=== PATIENT | female | born 1985 | race Caucasian/White ===

== ENCOUNTER 2018-06-28 18:09 | Emergency (ER) | payer OTHER, MEDICAID, SELFPAY ==
[2018-06-28 18:14] VITALS: BP 122/78; PULSE 69; RESP 14; TEMP 37; O2SAT 100; BMI 28.8
--- NOTE | 2018-06-28 18:20 | ED.ALLEREA ---
HPI - Allergic Reaction General Chief complaint: Allergic Reaction Stated complaint: POSSIBLE ALLERGIC REACTION Time Seen by Provider: 06/28/18 18:17 Source: patient and family Mode of arrival: ambulatory Limitations: no limitations History of Present Illness HPI narrative: 32-year-old female, otherwise healthy, nonsmoker presents with family in the chief complaint of generally feeling unwell. Few days ago she had seen her dentist with a chief complaint of a right upper dental pain and was subsequently placed on antibiotics and scheduled for a root canal. Soon after taking the penicillin VK she started feeling a bit nauseated with decreased appetite and was switched to clindamycin. At no point were there any true allergic type symptoms including rash or swelling of tongue, lip sore throat. Well on clindamycin she has more GI upset but not necessarily vomiting or diarrhea. She feels unwell but states the dental infection appears to be getting better. She denies any facial pain or swelling. She has no trouble breathing and denies any rash Onset (ago): day(s) Exposure: unknown Severity: mild Treatment prior to arrival: none Previous Allergic Reaction History: none Related Data Previous Rx's Medication Instructions Recorded ibuprofen 800 mg PO Q8HP PRN #90 tab 07/21/17 amoxicillin-pot clavulanate 875 mg PO BID #14 tab 01/07/18 [Augmentin] Allergies Allergy/AdvReac Type Severity Reaction Status Date / Time No Known Allergies Allergy Uncoded 06/28/18 18:11 Review of Systems Review of Systems All systems reviewed & are unremarkable except as noted in HPI and below Constitutional Denies chills, Denies fever(s), Denies lethargy and Reports weakness Eyes Denies change in vision, Denies eye discharge, Denies irritation and Denies loss of vision ENT Ears, Nose, Mouth, and Throat: Denies change in voice, Reports dental pain, Denies neck pain and Denies sore throat Cardiovascular Denies chest pain, Denies irregular heart rhythm, Denies lightheadedness, Denies palpitations, Denies dyspnea, Denies dyspnea on exertion and Denies orthopnea Respiratory Denies cough, Denies dyspnea, Denies dyspnea on exertion and Denies wheezing Gastrointestinal Gastrointestinal: Denies abdominal pain, Denies change in bowel habits, Denies diarrhea, Reports nausea and Denies vomiting Genitourinary Denies hematuria, Denies flank pain, Denies urinary incontinence and Denies urinary urgency Musculoskeletal Denies neck pain Integumentary/Breasts Denies pruritus, Denies erythema, Denies rash and Denies wounds Neurologic Denies confusion, Denies loss of vision and Reports weakness Psychiatric Denies anxiety, Denies confusion, Denies depression, Denies homicidal ideation and Denies suicidal ideation Endocrine Denies palpitations Hematologic/Lymphatic Denies easy bruising Allergic/Immunologic Denies wheezing PFSH Social History Smoking Status: Never smoker Exam Narrative Exam Narrative: GEN: AOx3 and in mild distress EYES: Pupils are equal, round, and reactive to light and accommodation. Extraoccular muscles are intact bilaterally. There is no subconjunctival hemorrhage or exudate. DENTAL: Poor dentition throughout, right upper premolar with some gingival swelling but no fluctuance suggesting abscess. No mucosal sloughing or intraoral involvement. No tongue or lip swelling. CHEST: Lungs are clear to auscultation bilaterally and free of wheezes, rales, or rhonchi. Heart rate is regular rhythm, there are no murmurs, clicks, rubs, or gallops. There is no chest wall tenderness. ABD: Abdomen is soft and nontender. There is no guarding or rebound. Bowel sounds are normal in all 4 quadrants. There is no mass or organomegaly. EXT: Full painless ROM of all extremities with no loss of sensation or strength. SKIN: Warm, pink, and dry. No erythema or rash Initial Vital Signs Initial Vital Signs: Vital Signs Temperature 98.6 F 06/28/18 18:14 Pulse Rate 69 06/28/18 18:14 Respiratory Rate 14 06/28/18 18:14 Blood Pressure 122/78 06/28/18 18:14 Pulse Oximetry 100 06/28/18 18:14 Course Orders Ordered: ED Orders 06/28/18 19:06 Complete Blood Count AUTO DIFF Stat Procalcitonin Stat 06/28/18 19:25 Lactate (Lactic Acid) Stat Discontinued Medications Sodium Chloride (Normal Saline 0.9%) 1,000 mls @ 1,000 mls/hr IV BOLUS ONE Stop: 06/28/18 19:36 Last Infusion: 06/28/18 20:05 Dose: 0 mls/hr Admin: 06/28/18 18:56 Dose: 1,000 mls/hr Ketorolac Tromethamine (Toradol) 15 mg IV NOW ONE Stop: 06/28/18 18:38 Last Admin: 06/28/18 18:55 Dose: 15 mg Ondansetron HCl (Zofran) 4 mg IV Q4HR PRN PRN Reason: Nausea And Vomiting Last Admin: 06/28/18 18:56 Dose: 4 mg Reevaluation(s) Reevaluation #1: Patient feels tremendous improvement after above-stated therapies. We had lengthy discussion regarding her symptoms and it seems very likely that her appetite has been suppressed by the dental infection and and antibiotics and she has had less oral intake and has become mildly dehydrated. We discussed the use of probiotics and staying well hydrated. She will call her dentist tomorrow Vital Signs - 8 hr 06/28/18 19:54 06/28/18 20:58 Temperature 98.6 F Pulse Rate 69 60 Respiratory Rate 14 16 Blood Pressure 122/78 Blood Pressure [Right Arm] 112/70 Pulse Oximetry 100 100 MDM - Allergic Reaction Lab Data Result diagrams: 06/28/18 19:06 Lab Results 06/28/18 06/28/18 06/28/18 Range/Units 19:06 19:06 19:25 WBC 13.5 H (4.5-11.0) X10^3/uL RBC 4.40 (4.0-5.2) X10^6/uL Hgb 13.3 (12.0-16.0) g/dL Hct 39.4 (36-46) % MCV 89.5 (80-100) fL MCH 30.1 (26-34) PG MCHC 33.6 (30-36) % RDW 12.5 (11.6-14.8) % Plt Count 259 (150-400) X10^3/uL Neut % (Auto) 81.4 H (50-75) % Lymph % (Auto) 12.9 L (25-40) % [place] % (Auto) 4.2 (3-14) % Eos % (Auto) 0.8 L (2-4) % Baso % (Auto) 0.7 (0-2) % Neut # (Auto) 87999 H (5734-7129) /uL Lactate 0.7 (0.7-2.1) mmol/L Procalcitonin < 0.05 (<0.5) ng/mL Discharge Plan Departure Patient Disposition: Home Clinical Impression: Acute dehydration, Dental abscess Discharge Date/Time: 06/28/18 21:05 Interventions: ED Discharge Assessment Last Done: 06/28/18 21:04 Instructions: Tooth Abscess Activity Restrictions/Additional Instructions: 1. Drink plenty of fluids with frequent small sips. 2. For the next 24 hours a clear liquid diet is advised. After that please employ a brat diet which would include bananas, rice, apples, toast. 3. Please take medications as directed.Consider the addition of probiotics 4. Please follow-up with your doctor in the next 1-2 days. Call the office for an appointment. 5. Please return to the emergency Department for any worsening or persistent symptoms, such as increasing pain or fever. Prescriptions: No Action ibuprofen 800 MG tablet 800 mg PO Q8HP PRNQty: 90 RF: 0 amoxicillin-pot clavulanate [Augmentin] 875 MG/125 MG tablet 875 mg PO BID Qty: 14 RF: 0
[2018-06-28] MEDS: KETOROLAC 60 MG/2 ML VIAL 15 MG IV (18:55)
[2018-06-28] MEDS: SODIUM CHLORIDE 0.9% 1,000 ML 1000 ML IV (18:56)
[2018-06-28] MEDS: ONDANSETRON 4 MG/2 ML INJ IV (18:56)
[2018-06-28 19:27] LABS: Add Manual Diff / Slide Review NO; Basophils Percent Auto 0.7 % (0-2); Eosinophils Percent Auto 0.8 % (2-4); Hematocrit 39.4 % (36-46); Hemoglobin 13.3 g/dL (12.0-16.0); Lymphocytes Percent Auto 12.9 % (25-40); Mean Corpuscular HGB Conc 33.6 % (30-36); Mean Corpuscular Hemoglobin 30.1 PG (26-34); Mean Corpuscular Volume 89.5 fL (80-100); Monocytes Percent Auto 4.2 % (3-14); Neutrophils Absolute Auto 11000 /uL (3000-5900); Neutrophils Percent Auto 81.4 % (50-75); Platelet Count 259 X10^3/uL (150-400); Red Cell Distribution Width 12.5 % (11.6-14.8); White Blood Cell Count 13.5 X10^3/uL (4.5-11.0)
[2018-06-28 19:40] LABS: Lactate (Lactic Acid) 0.7 mmol/L (0.7-2.1)
[2018-06-28 19:54] VITALS: BP 122/78; PULSE 69; RESP 14; TEMP 37; O2SAT 100; BMI 28.8
[2018-06-28 20:03] LABS: Procalcitonin < 0.05 ng/mL (<0.5)
[2018-06-28 20:58] VITALS: BP 112/70; PULSE 60; RESP 16; O2SAT 100
== END 2018-06-28 21:05 | disposition home or self-care (01) ==
PROVIDERS: Emergency Provider Emergency Medicine; PCP Family Medicine
DX: E86.0 Dehydration (principal); K04.7 Periapical abscess without sinus
CPT/HCPCS: 36415; 36591; 83605; 84145; 85025; 96361; 96374; 96375; 99283; 99284; J1885; J2405

== ENCOUNTER 2018-12-07 10:14 | Emergency (ER) | payer OTHER, MEDICAID, SELFPAY ==
[2018-12-07 11:04] VITALS: BP 109/70; PULSE 67; RESP 13; TEMP 36.9; O2SAT 100
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
[2018-12-07] MEDS: IBUPROFEN 400 MG TABLET 800 MG PO (12:11)
[2018-12-07 12:25] VITALS: BP 112/78; PULSE 70; RESP 14; O2SAT 98
== END 2018-12-07 12:20 | disposition home or self-care (01) ==
PROVIDERS: Emergency Provider Emergency Medicine; PCP Family Medicine
DX: S16.1XXA Strain of muscle, fascia and tendon at neck level, initial encounter (principal); V89.2XXA Person injured in unspecified motor-vehicle accident, traffic, initial encounter
CPT/HCPCS: 99282

== ENCOUNTER → 2019-03-23 14:22 | Outpatient (CLI) | payer OTHER, MEDICAID, SELFPAY ==
--- NOTE | 2019-03-23 14:25 | DI.US.S_ITS ---
LIMITED ULTRASOUND OF RIGHT BREAST: 03/23/2019 CLINICAL: Palpable right breast lump by physician. Comparison is made to exam dated: 03/23/2019 [facility]. Color flow and real-time ultrasound of the right breast 6 o'clock region were performed. Treadwell scale images of the real-time examination were reviewed. No abnormalities were seen sonographically in the right breast. IMPRESSION: NEGATIVE There is no sonographic evidence of malignancy. Return to annual mammogram screening schedule is recommended. Findings and recommendations were conveyed to the patient at time of exam. This exam was interpreted at Station ID: [id number]. Electronically Signed By: Fransisca snow/:03/23/2019 17:22:13 letter sent: Normal Exam Ultrasound BI-RADS: 1 Negative
--- NOTE | 2019-03-23 14:25 | DI.MG.S_ITS ---
BILATERAL DIGITAL DIAGNOSTIC MAMMOGRAM 3D/2D: 03/23/2019 CLINICAL: Baseline exam. Right breast pain. Bilateral lumps noted by the MD. No prior exams were available for comparison. There are scattered fibroglandular elements in both breasts. No significant masses, calcifications, or other findings are seen in either breast. IMPRESSION: INCOMPLETE: NEEDS ADDITIONAL IMAGING EVALUATION There is no abnormality seen in either breast to correspond with the palpable abnormality and pain, however, ultrasound for complete evaluation is recommended. This was performed immediately following this exam. This exam was interpreted at Station ID: [id number]. NOTE: For mammograms, a report in lay terms will be sent to the patient. Approximately 15% of breast malignancies will not be visualized mammographically. In the management of a palpable breast mass, a negative mammogram must not discourage biopsy of a clinically suspicious lesion. Electronically Signed By: Fransisca snow/:03/23/2019 17:18:50 ACR BI-RADS Category 0: Incomplete [id number]
--- NOTE | 2019-03-23 16:01 | DI.US.S_ITS ---
LIMITED ULTRASOUND OF LEFT BREAST: 03/23/2019 CLINICAL: Palpable left breast lump by physician. Comparison is made to exam dated: 03/23/2019 [facility]. Color flow and real-time ultrasound of the left breast 6 o'clock region were performed. Treadwell scale images of the real-time examination were reviewed. No abnormalities were seen sonographically in the left breast. IMPRESSION: NEGATIVE There is no sonographic evidence of malignancy. Return to annual mammogram screening schedule is recommended. Findings and recommendations were conveyed to the patient at time of exam. This exam was interpreted at Station ID: [id number]. Electronically Signed By: Fransisca snow/:03/23/2019 17:23:32 letter sent: Normal Exam Ultrasound BI-RADS: 1 Negative
== END ==
PROVIDERS: PCP Family Medicine; Visit Provider Family Medicine
DX: R92.8 Other abnormal and inconclusive findings on diagnostic imaging of breast (principal); N64.4 Mastodynia; N63.10 Unspecified lump in the right breast, unspecified quadrant; N63.20 Unspecified lump in the left breast, unspecified quadrant
CPT/HCPCS: 76642; 77066; G0279

== ENCOUNTER 2019-04-30 17:45 | Emergency (ER) | payer OTHER, MEDICAID, SELFPAY ==
[2019-04-30 17:59] VITALS: BP 105/75; PULSE 63; RESP 18; TEMP 36.8; O2SAT 100; BMI 28.1
--- NOTE | 2019-04-30 18:09 | ED_ITS ---
HPI - Neck Pain/Injury General Chief Complaint: Neck Pain/Injury Stated Complaint: ?bone/blood in throat x4 day Time Seen by Provider: 04/30/19 18:07 Source: patient Mode of arrival: ambulatory Limitations: no limitations History of Present Illness HPI Narrative: 33-year-old female nonsmoker and otherwise healthy presents with a chief complaint itching, scratching and occasional hemoptysis in her throat since eating a salmon dinner 4 days ago. She is fairly certain she remembers the moment it happened and she briefly choked on a bone and thinks she may have caught up. She has had a foreign body sensation in her throat ever since though she can eat and drink without significant difficulty. She had cough with bloody sputum today. She denies fever chills nor shortness of breath. Onset (ago): day(s) Place: home Quality: stabbing Duration: constant Relieving factors: none Exacerbating factors: none Treatments prior to arrival: none Related Data Previous Rx's Medication Instructions Recorded ibuprofen 800 mg PO Q8HP PRN #90 tab 07/21/17 Allergies Allergy/AdvReac Type Severity Reaction Status Date / Time amoxicillin AdvReac Intermediate Nausea Verified 04/30/19 17:59 Review of Systems Constitutional Denies chills, Denies fever(s), Denies lethargy and Denies weakness Eyes Denies change in vision, Denies eye discharge, Denies irritation and Denies loss of vision ENT Ears, Nose, Mouth, and Throat: Denies change in voice, Denies neck pain and Reports sore throat Cardiovascular Denies chest pain, Denies irregular heart rhythm, Denies lightheadedness, Denies palpitations, Denies dyspnea, Denies dyspnea on exertion and Denies orthopnea Respiratory Reports cough, Denies dyspnea, Denies dyspnea on exertion and Denies wheezing Gastrointestinal Gastrointestinal: Denies abdominal pain, Denies change in bowel habits, Denies diarrhea, Denies nausea and Denies vomiting Genitourinary Denies hematuria, Denies flank pain, Denies urinary incontinence and Denies urinary urgency Musculoskeletal Denies neck pain Integumentary/Breasts Denies pruritus, Denies erythema, Denies rash and Denies wounds Neurologic Denies confusion, Denies loss of vision and Denies weakness Psychiatric Denies anxiety, Denies confusion, Denies depression, Denies homicidal ideation and Denies suicidal ideation Endocrine Denies palpitations Hematologic/Lymphatic Denies easy bruising Allergic/Immunologic Denies wheezing PFSH Social History Smoking Status: Never smoker Social History Smoking Status: Never smoker Exam Narrative Exam Narrative: GENERAL: This is a well-nourished, well-developed patient, in mild distress. HEAD: Atraumatic. Normocephalic. No temporal or scalp tenderness. EYES: Pupils equal round and reactive. Extraocular motions intact. No scleral icterus. No injection or drainage. ENT: Nose without bleeding, purulent drainage or septal hematoma. Throat without erythema, tonsillar hypertrophy or exudate. Uvula midline. Airway patent. NECK: Trachea midline. No JVD or lymphadenopathy. Supple, nontender, no meningeal signs. CARDIOVASCULAR: Regular rate and rhythm without murmurs, gallops, or rubs. RESPIRATORY: Clear to auscultation. Breath sounds equal bilaterally. No wheezes, rales, or rhonchi. GASTROINTESTINAL: Abdomen soft, non-tender, nondistended. No hepato- splenomegaly, or palpable masses. No guarding. EXTREMITIES: No clubbing, cyanosis, or edema. No joint tenderness, effusion, or edema noted. BACK: Nontender without deformity or crepitance. No flank tenderness. NEURO: AOx3. SKIN: No rash or erythema. Initial Vital Signs Initial Vital Signs: Vital Signs Temperature 98.3 F 04/30/19 17:59 Pulse Rate 63 04/30/19 17:59 Respiratory Rate 18 04/30/19 17:59 Blood Pressure 105/75 04/30/19 17:59 Pulse Oximetry 100 04/30/19 17:59 Course Orders Ordered: ED Orders 04/30/19 18:13 XR soft tissue neck Stat Consultations Consultation #1: call to Dr. Alicia (Gen Surgery). Discussed H/P and imaging. No indication for emergent procedure tonight, but will reach out to her in the morning, and requests that we keep her NPO after midnight. Vital Signs - 8 hr 04/30/19 17:59 Temperature 98.3 F Pulse Rate 63 Respiratory Rate 18 Blood Pressure 105/75 Pulse Oximetry 100 MDM - Neck Pain/Injury MDM Narrative Medical decision making narrative: 33-year-old female with foreign body sensation in her esophagus since eating salmon with possible bone ingestion 4 days ago. She is able to eat and drink but has irritation in her esophagus. Today had an episode of blood-tinged sputum production with cough. No fever, crepitance, signs of sepsis or abnormal findings on imaging. Suspect foreign body versus abrasion, will achieveclose follow-up with General surgery for possible endoscopy Discharge Plan Departure Patient Disposition: Home Clinical Impression: Esophageal foreign body Qualifiers: Encounter type: initial encounter Qualified Code(s): T18.108A - Unspecified foreign body in esophagus causing other injury, initial encounter Discharge Date/Time: 04/30/19 19:40 Interventions: ED Discharge Assessment Last Done: 04/30/19 19:40 Activity Restrictions/Additional Instructions: *You have been diagnosed with [ possible esophageal foreign body ] *What to do: *Dr. Alicia will call you tomorrow to discuss how to proceed. He may have you come in to have a scope to look at your throat. DO NOT EAT OR DRINK AFTER MIDNIGHT until you hear from him *Return to ER if you should have any new, worsening or concerning symptoms Prescriptions: No Action ibuprofen 800 MG tablet 800 mg PO Q8HP PRNQty: 90 RF: 0 Referrals: Refugio Alicia MD [Physician] -
--- NOTE | 2019-04-30 18:13 | DI.RAD.S_ITS ---
PROCEDURE: XR SOFT TISSUE NECK INDICATIONS: fishbone, perf, hemoptysis TECHNIQUE: 2 views of the neck were acquired. COMPARISON: None. FINDINGS: Airway: The airway appears patent. No radiopaque soft tissue foreign body. Soft tissues: Prevertebral soft tissues are normal in thickness. The epiglottis and aryepiglottic folds appear normal. No soft tissue gas. Bones: No suspicious bony lesions. Visualized cervical spine demonstrates loss of normal cervical lordosis. Multilevel spondylosis.. IMPRESSION: No radiographic evidence for radiopaque soft tissue foreign body. No soft tissue gas. Straightening of normal cervical lordosis likely related to positioning and/or concurrent muscle spasms. Multilevel cervical spondylosis. Dictated by: Roberto Mckinnon M.D. on 04/30/2019 at 18:47 Approved by: Roberto Mckinnon M.D. on 04/30/2019 at 18:48
--- NOTE | 2019-04-30 18:15 | PC.NURSE ---
Patient states throat pain and irritation since choking on a salmon bone on Friday night. Wants to make sure there is nothing stuck in there.
[2019-04-30 19:40] VITALS: BP 114/65; PULSE 61; RESP 14; O2SAT 100
== END 2019-04-30 19:40 | disposition home or self-care (01) ==
PROVIDERS: Emergency Provider Emergency Medicine; PCP Family Medicine
DX: T18.108A Unspecified foreign body in esophagus causing other injury, initial encounter (principal)
CPT/HCPCS: 70360; 99283

== ENCOUNTER 2019-09-19 13:23 | Emergency (ER) | payer OTHER, MEDICAID, SELFPAY ==
[2019-09-19 13:25] VITALS: BP 114/59; PULSE 62; RESP 14; TEMP 36.5; O2SAT 100; BMI 26.9
[2019-09-19 14:49] VITALS: BP 118/36; PULSE 76; RESP 14; O2SAT 100
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
== END 2019-09-19 15:03 | disposition home or self-care (01) ==
PROVIDERS: Emergency Provider Nurse Practitioner Family; PCP Family Medicine
DX: M54.2 Cervicalgia (principal)
CPT/HCPCS: 99281; 99282

== ENCOUNTER → 2019-10-18 11:08 | Outpatient (CLI) | payer OTHER, MEDICAID, SELFPAY ==
--- NOTE | 2019-10-18 11:11 | DI.RAD.S_ITS ---
PROCEDURE: XR CERVICAL SPINE 2V OR 3V INDICATIONS: Persistent neck pain TECHNIQUE: 3 view(s) of the cervical spine were acquired. COMPARISON: None. FINDINGS: Bones: No fractures or dislocations to the T1 level. The lateral masses of C1 appear intact on the odontoid view. No suspicious bony lesions. Soft tissues: No prevertebral soft tissue swelling. IMPRESSION: Normal for age, source of current persistent neck pain symptoms is not seen. Dictated by: Norris Grande M.D. on 10/18/2019 at 13:19 Approved by: Norris Grande M.D. on 10/18/2019 at 13:19
== END ==
PROVIDERS: PCP Family Medicine; Visit Provider Family Medicine
DX: M54.2 Cervicalgia (principal); S16.1XXA Strain of muscle, fascia and tendon at neck level, initial encounter
CPT/HCPCS: 72040

== ENCOUNTER → 2021-09-11 07:28 | Outpatient (CLI) | payer OTHER, MEDICAID, SELFPAY ==
--- NOTE | 2021-09-11 07:29 | DI.US.S_ITS ---
PROCEDURE: US PERIPH VENOUS LOW EXTREM RT INDICATIONS: PAIN TECHNIQUE: Real-time imaging, as well as color and pulse Doppler interrogation, were performed of the lower extremity deep veins from the inguinal ligament to the popliteal fossa. COMPARISON: None. FINDINGS: The common femoral, femoral and popliteal veins are normally compressible, and free of intraluminal thrombus. Color and pulse Doppler demonstrate normal phasic intraluminal flow. There is normal augmentation response to distal compression maneuver. IMPRESSION: No sonographic evidence of DVT. Dictated by: Aldair Rodriguez M.D. on 09/11/2021 at 9:26 Approved by: Aldair Rodriguez M.D. on 09/11/2021 at 9:27
== END ==
PROVIDERS: PCP Family Medicine; Referring Provider Nurse Practitioner Family; Visit Provider Nurse Practitioner Family
DX: M79.89 Other specified soft tissue disorders (principal); M79.604 Pain in right leg
CPT/HCPCS: 93971

== ENCOUNTER 2022-08-04 15:42 | Emergency (ER) | payer OTHER, MEDICAID, SELFPAY ==
[2022-08-04 15:55] VITALS: BP 154/75; PULSE 85; RESP 19; TEMP 37; O2SAT 99; BMI 26.9
--- NOTE | 2022-08-04 16:02 | DI.CT.S_ITS ---
PROCEDURE: CT HEAD/BRAIN WO CON INDICATIONS: double vision and headache TECHNIQUE: Noncontrast 5 mm thick angled axial sections acquired from the foramen magnum to the vertex, with coronal and sagittal reformats. For radiation dose reduction, the following was used: automated exposure control, adjustment of mA and/or kV according to patient size. COMPARISON: None. FINDINGS: Image quality: Excellent. CSF spaces: Basal cisterns are patent. No extra-axial fluid collections. Ventricles are normal in size and shape. Brain: No midline shift. No intracranial masses or hemorrhage. Treadwell-white matter interface is normal. Skull and face: Calvarium and visualized facial bones are intact, without suspicious lesions. Sinuses: Visualized sinuses and mastoids are clear. IMPRESSION: Normal CT brain Approved by: Alon Frank M.D. on 08/04/2022 at 15:35
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
[2022-08-04 17:16] VITALS: BP 140/64; PULSE 74; RESP 16; O2SAT 95
== END 2022-08-04 17:15 | disposition home or self-care (01) ==
PROVIDERS: Emergency Provider Emergency Medicine; PCP Family Medicine
DX: H53.2 Diplopia (principal); R51.9 Headache, unspecified
CPT/HCPCS: 70450; 82962; 99283

== ENCOUNTER → 2022-10-23 10:10 | Outpatient (CLI) | payer OTHER, MEDICAID, SELFPAY ==
[2022-10-23 10:47] LABS: Add Manual Diff / Slide Review NO; Basophils Absolute Auto 100 /uL (0-100); Basophils Percent Auto 1.1 % (0-2); Eosinophils Absolute Auto 100 /uL (0-450); Eosinophils Percent Auto 1.9 % (2-4); Hematocrit 38.6 % (36-46); Lymphocytes Absolute Auto 2000 /uL (1100-4500); Lymphocytes Percent Auto 39.3 % (25-40); Mean Corpuscular HGB Conc 33.7 % (30-36); Mean Corpuscular Volume 85.9 fL (80-100); Monocytes Absolute Auto 400 /uL (0-900); Monocytes Percent Auto 8.5 % (3-14); Neutrophils Absolute Auto 2500 /uL (1500-7000); Neutrophils Percent Auto 49.2 % (50-75); Platelet Count 240 X10^3/uL (150-400); Red Blood Cell Count 4.49 X10^6/uL (4.0-5.2); White Blood Cell Count 5.1 X10^3/uL (4.5-11.0)
[2022-10-23 11:01] LABS: Alanine Aminotransferase 26 IU/L (<35); Albumin 4.2 g/dL (3.5-5.0); Albumin Globulin Ratio 1.1 (1.0-2.8); Alkaline Phosphatase 68 U/L (38-126); Aspartate Aminotransferase 25 IU/L (14-36); BUN Creatinine Ratio 16.4 (6-22); Bilirubin Total 0.7 mg/dL (0.2-1.3); Blood Urea Nitrogen 11 mg/dL (7-17); Carbon Dioxide 27 mmol/L (22-32); Chloride 103 mmol/L (98-107); Cholesterol 163 mg/dL (140-199); Estimated Glomerular Filt Rate > 60 mL/min (>60); Globulin 3.8 g/dL (1.7-4.1); Glucose 96 mg/dL (70-100); HDL Cholesterol 44 mg/dL (40-60); HEMOLYSIS < 15 (0-50); LDL Cholesterol Calculated 103 mg/dL (<100); Sodium 138 mmol/L (137-145); Triglycerides 81 mg/dL (35-150)
[2022-10-23 11:30] LABS: TSH w/ Reflex to FT4 < 0.02 uIU/mL (0.47-4.68)
[2022-10-23 12:01] LABS: Free T4, Direct Thyroxine 1.96 ng/dL (0.78-2.19)
== END ==
PROVIDERS: PCP Family Medicine; Referring Provider Family Medicine; Visit Provider Family Medicine
DX: G44.039 Episodic paroxysmal hemicrania, not intractable (principal); H53.2 Diplopia
CPT/HCPCS: 36415; 80053; 80061; 84439; 84443; 85025

== ENCOUNTER 2024-08-15 19:17 | Emergency (ER) | payer OTHER, MEDICAID, SELFPAY ==
[2024-08-15 19:21] VITALS: BP 119/69; PULSE 77; RESP 16; TEMP 36.1; O2SAT 99; BMI 30.4
[2024-08-15 19:30] VITALS: BP 111/55
[2024-08-15 19:31] VITALS: PULSE 89; RESP 16; O2SAT 98
--- NOTE | 2024-08-15 19:31 | DI.RAD.S_ITS ---
PROCEDURE: XR CHEST 1V INDICATIONS: chest pain TECHNIQUE: One view of the chest was acquired. COMPARISON: None. FINDINGS: Surgical changes and devices: None. Lungs and pleura: Lungs are clear. No pleural effusions or pneumothorax. Mediastinum: Mediastinal contours appear normal. Heart size is normal. Bones and chest wall: No suspicious bony lesions. Overlying soft tissues appear unremarkable. IMPRESSION: No acute cardiopulmonary pathology. Dictated by: Sree Burnett M.D. on 08/15/2024 at 20:09 Approved by: Sree Burnett M.D. on 08/15/2024 at 20:09
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
--- NOTE | 2024-08-15 20:10 | EKG_ITS ---
[address] [address] Test Date: 2024-08-15 Pat Name: Susan Smith Department: Room: Gender: Female Store Host: LIZZ : 1985 Requested By: Order Number: [id number] Reading MD: Leonardo Estrada Measurements Intervals [place] Rate: 82 P: 49 [place]: 140 QRS: 19 QRSD: 68 T: 12 QT: 344 QTc: 401 Interpretive Statements Normal sinus rhythm Electronically Signed On 08-18-2024 19:02:16 PST by Leonardo Estrada
[2024-08-15 20:57] VITALS: BP 102/58; PULSE 65; RESP 14; O2SAT 100
== END 2024-08-15 20:56 | disposition home or self-care (01) ==
PROVIDERS: Emergency Provider Emergency Medicine; PCP Family Medicine
DX: R07.9 Chest pain, unspecified (principal); F41.0 Panic disorder [episodic paroxysmal anxiety]
CPT/HCPCS: 71045; 93005; 99281; 99284

== ENCOUNTER 2025-04-13 00:41 | Emergency (ER) | payer OTHER, SELFPAY ==
[2025-04-13 00:45] VITALS: BP 131/71; PULSE 63; RESP 16; TEMP 36.6; O2SAT 100; BMI 30.4
[2025-04-13 03:15] VITALS: BP 129/67; PULSE 64; O2SAT 100
--- NOTE | 2025-04-13 03:27 | ED.DENTAL ---
HPI - Dental/Oral General Chief complaint: Dental/Oral Stated complaint: left side jaw pain Time Seen by Provider: 04/13/25 00:47 Source: patient Mode of arrival: Ambulatory History of Present Illness HPI Narrative: 39-year-old female had dental filling placed today and started to have continued pain and swelling in her face despite taking Tylenol and ibuprofen multiple doses unable to sleep at this time. She denies fever, chill, neck pain, chest pain, cough, sore throat, or difficulty swallowing, eating or drink. Other than what is stated 14 point review system is negative. Location: Tooth # (14) Related Data Previous Rx's ?Medication ?Instructions ?Recorded hydroxyzine HCl 25 mg tablet 25 mg PO TID PRN anxiety #45 tabs 08/15/24 hydrocodone 5 mg-acetaminophen 325 1 tab PO Q4-6H PRN pain #20 tabs 04/13/25 mg tablet Allergies Allergy/AdvReac Type Severity Reaction Status Date / Time amoxicillin AdvReac Intermediate Nausea Verified 04/13/25 00:45 Review of Systems Review of Systems ROS Unobtainable: All systems reviewed & are unremarkable except as noted in HPI and below Patient History Medical History Preventative health care Generalized anxiety disorder Varicose veins of both lower extremities Cervical strain Surgical History History of tobacco type: cigarettes alcohol intake frequency: 0-2 drinks per day Exam Narrative Exam Narrative: GENERAL: [39] year old patient appears stated age. Well-developed patient, in mild distress. HEAD: Atraumatic. Normocephalic. EYES: Pupils equal round and reactive. Extraocular motions intact. No scleral icterus. No injection or drainage. ENT: Nose without bleeding, purulent drainage. Throat without erythema, tonsillar hypertrophy or exudate. Airway patent. EXTREMITIES: No edema or joint tenderness. BACK: Nontender without deformity or crepitance. No flank tenderness. NEURO: AOx3. SKIN: No rash or erythema of visible areas Initial Vital Signs Initial Vital Signs: Vital Signs Temperature 97.8 F 04/13/25 00:45 Pulse Rate 63 04/13/25 00:45 Respiratory Rate 16 04/13/25 00:45 Blood Pressure 131/71 04/13/25 00:45 Pulse Oximetry 100 04/13/25 00:45 Oxygen Delivery Method Room Air 04/13/25 00:45 Course Vital Signs Vital signs: Vital Signs - 8 hr 04/13/25 00:45 Temperature 97.8 F Pulse Rate 63 Respiratory Rate 16 Blood Pressure 131/71 Pulse Oximetry 100 Oxygen Delivery Method Room Air MDM - Dental/Oral MDM Narrative Medical decision making narrative: Vital signs, nurse triage note, medication list, previous ER visits, and all imaging studies reviewed. Patient given Imnaha and Toradol. DC home on few Imnaha pill and to follow up with dentist in the morning. Differential diagnosis dental abscess, gingivitis, dental caries, chronic pain. Discharge Plan Departure Patient Disposition: Home Clinical Impression: Dental disorder Instructions: DI for Dental Pain Activity Restrictions/Additional Instructions: Return with new or worsening symptoms. Follow up with dentist tomorrow morning. Take medicine directed. Prescriptions: New hydrocodone-acetaminophen 5-325 mg tablet 1 tab PO Q4-6H PRN (Reason: pain) Qty: 20 0RF No Action hydroxyzine HCl 25 mg tablet 25 mg PO TID PRN (Reason: anxiety) Qty: 45 0RF Referrals: Willy David DO [Primary Care Provider, Family Practice] Stand Alone Forms: Patient Portal/API
[2025-04-13 03:30] VITALS: PULSE 73; O2SAT 100
[2025-04-13 03:31] VITALS: BP 141/73; PULSE 59; O2SAT 100
[2025-04-13] MEDS: HYDROCODONE/ACET 5/325 TABLET 1 TAB PO (03:39)
[2025-04-13] MEDS: KETOROLAC 30 MG/ML VIAL IM (03:40)
== END 2025-04-13 03:46 | disposition home or self-care (01) ==
PROVIDERS: Emergency Provider Family Medicine; PCP Family Medicine
DX: K08.89 Other specified disorders of teeth and supporting structures (principal)
CPT/HCPCS: 96372; 99283; J1885